=== PATIENT | male | born 2000 | race Caucasian/White ===

== ENCOUNTER 2020-06-30 14:56 | Emergency (ER) | payer OTHER ==
[~2020-06-30] VITALS: Ht 185.4 cm; Wt 80.0 kg
[2020-06-30] MEDS ORDERED: ONDANSETRON 2MG/ML, 2ML ONE (15:24)
[2020-06-30] MEDS ORDERED: MORPHINE SULFATE 4 MG/ML, 1ML ONE ×2 (15:24→16:45)
[2020-06-30] MEDS: MORPHINE SULFATE 4 MG/ML, 1ML IVPush PRN ×2 (15:28→16:47)
[2020-06-30] MEDS ORDERED: ONDANSETRON 2MG/ML, 2ML IVPush ONE (15:30)
[2020-06-30 15:36] LABS: BASOPHILS # (AUTO) 0.02 x10^3/uL (0-0.1); BASOPHILS % (AUTO) 0 % (0-1); EOSINOPHILS # (AUTO) 0.06 x10^3/uL (0-0.4); EOSINOPHILS % (AUTO) 1 % (1-7); LYMPHOCYTES # (AUTO) 1.51 x10^3/uL (1-3.4); LYMPHOCYTES % (AUTO) 13 % (22-44); MD NO; MEAN CORPUSCULAR HEMOGLOBIN 31.7 pg (27.5-34.5); MEAN CORPUSCULAR HGB CONC 33.6 g/dL (33.2-36.2); MEAN CORPUSCULAR VOLUME 94.2 fL (81-97); MEAN PLATELET VOLUME 8.1 fL (7.4-10.4); MONOCYTES # (AUTO) 0.86 x10^3/uL (0.2-0.8); MONOCYTES % (AUTO) 7 % (2-9); NEUTROPHILS # (AUTO) 9.55 x10^3/uL (1.8-6.8); NEUTROPHILS % (AUTO) 80 % (42-75); PLATELET COUNT 266 x10^3/uL (130-400); RED BLOOD COUNT 5.38 x10^6/uL (4.38-5.82); RED CELL DISTRIBUTION WIDTH 13.3 % (9.4-14.8)
[2020-06-30 15:48] LABS: ANION GAP 9 mmol/L (5-15); CALCIUM 9.9 mg/dL (8.5-10.1); CHLORIDE 106 mmol/L (98-107)
[2020-06-30 15:49] LABS: CREATININE 1.22 mg/dL (0.7-1.3)
[2020-06-30] MEDS ORDERED: OMNIPAQUE 350 MG/ML, 100ML BOTTLE ONE (16:41)
--- NOTE | 2020-06-30 16:48 | NUR ---
TASK RN: UPON RETURN FROM CT PT STATES LEFT LOW BACK PAIN INCREASED FROM LYING ON TABLE. ADDITIONAL DOSE OF MORPHINE GIVEN NOTED ON JAN.
[2020-06-30 16:49] VITALS: BP 129/71
--- NOTE | 2020-06-30 17:19 | NUR ---
PT IN BED, UPDATED ON RESULTS AND PLAN OF CARE BY ERP AT BEDSIDE. PT DENIES ANY FURTHER NEEDS AT THIS TIME, CALL LIGHT IN REACH.
--- NOTE | 2020-06-30 17:36 | NUR ---
PT INSTRUCTED ON LOG ROLLING FOR TRANSFER IN AND OUT OF BED, INSTRUCTED ON USE OF WALKER AND CANE. PT RETURN DEMO'D WITHOUT ISSUE. TOLERATED WELL. PT RESTING IN BED, CALL LIGHT IN REACH, AWAITING DISCHARGE PAPERWORK AT THIS TIME.
[2020-06-30] MEDS ORDERED: KETOROLAC 30 MG/1 ML ONE (17:43)
[2020-06-30 18:05] LABS: MICROSCOPIC NOT IND
== END 2020-06-30 18:19 | disposition home or self-care (01) ==
LOC: ED 15:22
DX: S32.021A Stable burst fracture of second lumbar vertebra, initial encounter for closed fracture (principal); S32.031A Stable burst fracture of third lumbar vertebra, initial encounter for closed fracture; W22.8XXA Striking against or struck by other objects, initial encounter; Y93.89 Activity, other specified; Y92.89 Other specified places as the place of occurrence of the external cause; Y99.8 Other external cause status
CPT/HCPCS: 36415; 74177; 80048; 81003; 82040; 85025; 96374; 96375; 96376; 99285; J2270; J2405; Q9967